=== PATIENT | female | born 1950 | race Caucasian/White ===

== ENCOUNTER 2018-11-26 15:07 | Outpatient (CLI) | payer OTHER | END 2018-11-26 15:16 | disposition home or self-care (01) | LOC: MAMO-SONO 15:07 | DX: Z12.31 Encounter for screening mammogram for malignant neoplasm of breast (principal); Z87.898 Personal history of other specified conditions; N60.19 Diffuse cystic mastopathy of unspecified breast ==

== ENCOUNTER 2019-06-03 08:15 | Day surgery (SDC) | payer OTHER | END 2019-06-03 12:45 | disposition home or self-care (01) | LOC: AMB-ENDOS 08:15 → ADM 12:15 → AMB-ENDOS 12:45 | DX: D12.3 Benign neoplasm of transverse colon (principal) ==

== ENCOUNTER → 2020-12-02 14:19 | Outpatient (CLI) | payer OTHER | END | disposition home or self-care (01) | LOC: MAMO-SONO 14:19 | DX: R92.1 Mammographic calcification found on diagnostic imaging of breast (principal); Z12.31 Encounter for screening mammogram for malignant neoplasm of breast; N60.11 Diffuse cystic mastopathy of right breast; N60.12 Diffuse cystic mastopathy of left breast ==

== ENCOUNTER 2021-07-13 14:02 | Outpatient (CLI) | payer OTHER | END 2021-07-13 14:16 | disposition home or self-care (01) | LOC: SONOGRAMA 14:02 | PROVIDERS: ATTEND Family Medicine | DX: R10.2 Pelvic and perineal pain (principal) ==